=== PATIENT | male | born 1950 | race Caucasian/White ===

== ENCOUNTER → 2023-08-30 | Outpatient (CLI) | payer MEDICARE, OTHER ==
[2023-08-30 10:28] LABS: African American GFR (CKD) >90 (>60 ml/min/1.73 sqM); Blood Urea Nitrogen 16 mg/dL (9-20); Non-African American GFR(CKD) 90 (>60 ml/min/1.73 sqM)
--- NOTE | 2023-08-30 12:29 | CT ---
EXAMINATION TYPE: CT abdomen pelvis w con DATE OF EXAM: 08/30/2023 COMPARISON: None HISTORY: Lower abdominal pain, pt c/o testicular pain, mass. CT DLP: 1056.40 mGycm Automated exposure control for dose reduction was used. CONTRAST: CT scan of the abdomen pelvis is performed with IV Contrast, patient injected with 100 mL of Isovue 3 00. FINDINGS- LUNG BASES- subsegmental changes right lung base suggestive of scarring or atelectasis. No focal pne umonia. Trace of pericardial fluid. LIVER/GB- tiny sub-5 mm hypodensity dome of the liver too small to characterize but likely benign. PANCREAS- No gross abnormality is seen. SPLEEN- No gross abnormality is seen. ADRENALS- No gross abnormality is seen. KIDNEYS/BLADDER- no hydronephrosis nephrolithiasis or renal mass. BOWEL- there is a small hiatal hernia. No evidence of bowel obstruction. There are bilateral inguina l hernias with left-sided inguinal hernia containing both fat and portions of the left colon. No obst ruction. Small hydrocele on the right. Changes of diverticulosis. LYMPH NODES- No greater than 1cm abdominal or pelvic lymph nodes are appreciated. OSSEOUS STRUCTURES- No significant abnormality is seen. OTHER- there is ectasia of the abdominal aorta measuring 2.4 cm. Small fat-containing anterior abdom inal wall hernia. Partially included in the [id number] is soft tissue attenuation in left AP windo w which could represent a small amount pericardial fluid or adenopathy. IMPRESSION- 1. There is bilateral inguinal hernias with a segment of colon included on the left but no evidence o f obstruction. 2. Partially included in the [id number] is soft tissue attenuation in the left AP window possibly representing a small amount of fluid or lymph node. Consider follow-up CT chest.
== END | disposition home or self-care (01) ==
LOC: RADCTMAIN 09:44
PROVIDERS: ATTEND Family Medicine
DX: K40.20 Bilateral inguinal hernia, without obstruction or gangrene, not specified as recurrent (principal); R10.30 Lower abdominal pain, unspecified
CPT/HCPCS: 82565; 84520; 74177; 36415; Q9967

== ENCOUNTER → 2023-11-12 | Outpatient (CLI) | payer MEDICARE, OTHER ==
--- NOTE | 2023-11-12 08:56 | XR ---
EXAMINATION TYPE: XR chest 2V DATE OF EXAM: 11/12/2023 COMPARISON: None INDICATION: COPD TECHNIQUE: Frontal and lateral views of the chest are obtained. FINDINGS: The heart size is normal. The pulmonary vasculature is normal. There is a small density along the lateral right diaphragm. Follow-up exam in 3 months is recommended . No suspicious infiltrates are evident. IMPRESSION: 1. Punctate density at the right lateral diaphragm. Follow-up exam in 3 months is recommended for ree valuation. 2. No acute pulmonary process.
== END | disposition home or self-care (01) ==
LOC: LABWHC1 07:04
PROVIDERS: ATTEND Surgery Plastic and Reconstructive Surgery
DX: J44.9 Chronic obstructive pulmonary disease, unspecified (principal); K40.90 Unilateral inguinal hernia, without obstruction or gangrene, not specified as recurrent; I49.2 Junctional premature depolarization
CPT/HCPCS: 71046; 93005

== ENCOUNTER 2023-11-23 05:42 | Day surgery (SDC) | payer MEDICARE, OTHER ==
[2023-11-20 16:06] VITALS: BMI 26.6
[2023-11-23] MEDS ORDERED: LIDOCAINE 1% (10MG/ML) FOR IV START INTRADERMA PRN (06:18)
[2023-11-23 06:38] VITALS: TEMP 98.2
[2023-11-23] MEDS: LACTATED RINGERS 1,000 ML IV SCH (06:44)
[2023-11-23] MEDS: ONDANSETRON 4 MG/2 ML VIAL IVP PRN (06:45)
[2023-11-23] MEDS: ACETAMINOPHEN TAB 500 MG TAB PO PRN (06:52)
[2023-11-23] MEDS: MELOXICAM 7.5 MG TAB PO PRN (06:52)
--- NOTE | 2023-11-23 06:59 | P.GSHP ---
History of Present Illness H&P Date: 11/23/23 CHIEF COMPLAINT: Inguinal hernia, bilateral HISTORY OF PRESENT ILLNESS: The patient is a 72-year-old male who presents with a history of swelling and pain along the groins. He's noted increased swelling including pain of the area for over 3 months. He reports walking up 10 steps with groceries several times without chest pain or shortness of breath but he reports increased swelling of the groin with activity. 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 He presents for repair of his inguinal hernia. PAST MEDICAL HISTORY: Please see list. PAST SURGICAL HISTORY: Please see list. MEDICATIONS: Please see list. ALLERGIES: Please see list. SOCIAL HISTORY: No illicit drug use FAMILY HISTORY: No reports of Crohn disease or ulcerative colitis. REVIEW OF ORGAN SYSTEMS: CONSTITUTIONAL: Denies any fever or chills. Denies recent weight loss or weight gain. HEENT: Denies any trouble with vision, hearing or nosebleeds. No difficulty swallowing. LYMPHATIC: The patient denies any lumps and bumps around the neck. ENDOCRINE: Denies any thyroid disorders. Denies any blood sugar glucose intolerance. RESPIRATORY: Denies pneumonia. Denies any troubles with breathing or dyspnea on exertion. CARDIOVASCULAR: Denies any chest pain, palpitations, or recent heart attacks. GASTROINTESTINAL: Denies heart burn, constipation or bright red blood per rectum. GENITOURINARY: Denies any blood in urine or increased urinary frequency. MUSCULOSKELETAL: Denies any back pain, stiffness, joint arthritis. NEUROLOGIC: Denies any numbness or tingling along the distal extremities. No seizure disorders or headaches. PSYCHIATRIC: Denies depression or suidical ideation. HEMATOLOGIC: Denies any abnormal bleeding or bruising. BREASTS: Denies any breast lumps, pain or nipple discharge. SKIN: Denies any severe rash or previous skin cancer. PHYSICAL EXAM: VITAL SIGNS: Stable GENERAL: Well-developed pleasant male in no acute distress. HEENT: No scleral icterus. Extraocular movements grossly intact. Moist buccal mucosa. NECK: Supple without lymphadenopathy. CHEST: Unlabored respirations. Equal bilateral excursions. CARDIOVASCULAR: Regular rate and rhythm. Distal 2+ pulses. ABDOMEN: Soft, nondistended. No peritoneal signs. Palpable defect of the groin MUSCULOSKELETAL: No clubbing, cyanosis, or edema. STUDIES: CT of the abdomen pelvis independently reviewed demonstrates a large left inguinal hernia involving sigmoid colon. This is my independent interpre tation. EKG: Reviewed demonstrates borderline EKG. XRAY: Chest x-ray report demonstrates no abnormal findings. No chronic obstructive pulmonary disease or emphysema. ASSESSMENT: 1. Inguinal hernia, bilateral PLAN: 1. Recommend proceeding with a robotic inguinal repair with mesh with bilateral approach. 2. Benefits and risks of surgical intervention was discussed including possibility of open technique. 3. DVT prophylaxis. 4. Antibiotic prophylaxis. 5. Non narcotic pain management including abdominal wall block described 6. Blood sugar glucose described. 7. Weight loss management described. 8. He is elevated risk due to bowel containing hernia and risk for strangulation and bowel injury Past Medical History Past Medical History: COPD, Hyperlipidemia, Hypertension, Prostate Disorder, Skin Disorder, Thyroid Disorder Additional Past Medical History / Comment(s): NO MEDS NEEDED FOR COPD. HX HIGH HEMOGLOBIN - RESOLVED. ROSACEA. ENLARGED PROSTATE. History of Any Multi-Drug Resistant Organisms: None Reported Past Surgical History: Appendectomy Past Anesthesia/Blood Transfusion Reactions: No Reported Reaction Additional Past Anesthesia/Blood Transfusion Reaction / Comment(s): HAS NEVER GENERAL ANESTHESIA. Past Psychological History: ADD/ADHD, Depression Additional Psychological History / Comment(s): ADD. Smoking Status: Former smoker Past Alcohol Use History: Abuse Additional Past Alcohol Use History / Comment(s): SMOKED FOR 50 YRS, 1 PPD, QUIT IN 2015. Stopped drinking in 1997. Past Drug Use History: None Reported - Past Family History Father Family Medical History: Cancer, Congestive Heart Failure (CHF) Additional Family Medical History / Comment(s): Lung cancer. Heavy drinker, smoked. Medications and Allergies Home Medications Medication Instructions Recorded Confirmed Type Citalopram Hydrobromide 20 mg PO HS 01/06/16 11/20/23 History [Citalopram HBr] Dextroamphetamine/Amphetamine 10 mg PO TID 01/06/16 11/20/23 History [Adderall] Levothyroxine Sodium [Synthroid] 50 mcg PO QAM 01/06/16 11/20/23 History Simvastatin 20 mg PO HS 01/06/16 11/20/23 History Losartan Potassium 50 mg PO W/LUNCH 11/20/23 11/23/23 History Multivitamins, Thera [Multivitamin 1 tab PO DAILY 11/20/23 11/20/23 History (formulary)] Allergies Allergy/AdvReac Type Severity Reaction Status Date / Time No Known Allergies Allergy Verified 11/20/23 15:12 Surgical - Exam Vital Signs Temp Pulse Resp BP Pulse Ox 98.2 F 71 18 146/70 99 11/23/23 06:28 11/23/23 06:28 11/23/23 06:28 11/23/23 06:28 11/23/23 06:28
[2023-11-23] MEDS: TAMSULOSIN 0.4 MG CAP.ER.24H PO STA (07:09)
[2023-11-23] MEDS: MIDAZOLAM 2 MG/2 ML VIAL IVP ONE (07:14)
[2023-11-23] MEDS: HEPARIN SODIUM,PORCINE 5,000 UNIT/ML 1 ML VIAL SQ PRN (07:27)
[2023-11-23] MEDS ORDERED: ePHEDrine 50 MG/ML 1 ML VIAL ONE (07:43)
[2023-11-23] MEDS ORDERED: fentaNYL (PF) 50 MCG/ML 2 ML AMP ONE (07:43)
[2023-11-23] MEDS ORDERED: SODIUM CHLORIDE 0.9% (PF) 10 ML VIAL ONE (07:43)
[2023-11-23] MEDS ORDERED: NEOSTIGMINE 1 MG/ML 10 ML VIAL ONE (07:43)
[2023-11-23] MEDS ORDERED: PROPOFOL 10 MG/ML 20 ML VIAL IV ONE (07:43)
[2023-11-23] MEDS ORDERED: GLYCOPYRROLATE 0.2 MG/ML 2 ML VIAL ONE (07:43)
[2023-11-23] MEDS ORDERED: ROPIVACAINE 5 MG/ML 30 ML VIAL ONE (07:43)
[2023-11-23] MEDS ORDERED: ROCURONIUM 10 MG/ML (5 ML VIAL) IV ONE (07:43)
[2023-11-23] MEDS ORDERED: SUCCINYLCHOLINE CHLORIDE 200 MG/10 ML VIAL IV ONE (07:43)
[2023-11-23] MEDS: LIDOCAINE 1%-EPI 1:100,000 50 ML VIAL SQ ONE (07:48)
[2023-11-23 08:16] LABS: Basophils % (A) 0 %; Eosinophils # (A) 0.2 k/uL (0-0.7); Eosinophils % (A) 3 %; HCT 50.5 % (39.0-53.0); HGB 16.9 gm/dL (13.0-17.5); Lymphocytes # (A) 1.6 k/uL (1.0-4.8); Lymphocytes % (A) 26 %; MCHC 33.5 g/dL (31.0-37.0); MCV 92.8 fL (80.0-100.0); Mean Platelet Volume 9.3; Monocytes # (A) 0.3 k/uL (0-1.0); Monocytes % (A) 5 %; Neutrophils # (A) 3.7 k/uL (1.3-7.7); Neutrophils % (A) 63 %; Platelet Count 139 k/uL (150-450); RBC 5.45 m/uL (4.30-5.90); RDW 12.8 % (11.5-15.5); WBC 5.9 k/uL (3.8-10.6)
[2023-11-23 08:26] LABS: ALT 38 U/L (4-49); AST 42 U/L (17-59); African American GFR (CKD) >90 (>60 ml/min/1.73 sqM); Albumin 4.5 g/dL (3.5-5.0); Alkaline Phosphatase 66 U/L (38-126); Anion Gap 10 mmol/L; Blood Urea Nitrogen 17 mg/dL (9-20); Calcium 9.5 mg/dL (8.4-10.2); Carbon Dioxide 25 mmol/L (22-30); Chloride 105 mmol/L (98-107); Glucose 122 mg/dL (74-99); Non-African American GFR(CKD) >90 (>60 ml/min/1.73 sqM); Sodium 140 mmol/L (137-145); Total Bilirubin 0.6 mg/dL (0.2-1.3); Total Protein 7.2 g/dL (6.3-8.2)
[2023-11-23 08:29] LABS: Potassium 4.6 mmol/L (3.5-5.1)
[2023-11-23] MEDS: LACTATED RINGERS 1,000 ML IV ONE (08:47)
--- NOTE | 2023-11-23 09:51 | P.ANPRN ---
Procedure Note - Anesthesia - Nerve Block Performed Bilateral Erector Spinae Single Time Out Performed: Yes (0714) Date of Procedure: 11/23/23 Procedure Start Time: 07:15 Procedure Stop Time: 07:20 Location of Patient: PreOp Indication: Acute Post-Operative Pain, Requested by Surgeon Sedation Type: Sedate with meaningful contact maintained Preparation: Sterile Prep, Sterile Dressing Position: Prone Catheter: None Needle Types: Pajunk Needle Gauge: 21 Ultrasound used to visualize needle placement: Yes Ultrasound used to observe medication spread: Yes Injectate: 0.5% Ropivacaine (see comment for volume) (20 mL of block solution used on each side which contains, 10 ML of 0.5% ropivacaine mixed with 10 ML of preservative-free normal saline) Blood Aspirated: No Pain Paresthesia on Injection Noted: No Resistance on Injection: Normal Image Stored and Saved: Yes Events: Uneventful and Well Tolerated
[2023-11-23] MEDS: HYDROmorphone 0.5 MG/0.5 ML SYRINGE IVP PRN (10:53)
--- NOTE | 2023-11-23 11:18 | P.OP ---
Date of Procedure: 11/23/23 Description of Procedure: SURGEON: ROSAURA SAMUELS MD PREOPERATIVE DIAGNOSES: 1. Bilateral inguinal hernias, initial 2. Hypertensive heart disease 3. Hypothyroidism 4. Depressive disorder 5. Hyperlipidemia 6. Enlarged prostate with obstructive uropathy 7. ADD with ADHD 8. Remote tobacco abuse disorder POSTOPERATIVE DIAGNOSES: 1. Initial left inguinal hernia, incarcerated with sigmoid colon, partial bowel obstruction 2. Initial right inguinal hernia, incarcerated 3. Hypothyroidism 4. Depressive disorder 5. Hyperlipidemia 6. Enlarged prostate with obstructive uropathy 7. ADD with ADHD 8. Remote tobacco abuse disorder 9. Hypertensive heart disease 10. Right inguinal lipoma, subfascial 3 cm OPERATION: 1. Robotic-assisted da Grzegorz Xi laparoscopic reduction repair of initial incarcerated left indirect inguinal hernia with mesh, 10 x [address] 2. Robotic-assisted da Grzegorz Xi laparoscopic reduction repair of initial incarcerated right indirect inguinal hernia with mesh, 10 x [address] 3. Excision of right inguinal subfascial lipoma, 3 cm ANESTHESIA: General, block with local anesthetic ESTIMATED BLOOD LOSS: 5 mL. SPECIMENS: 1. Incarcerated left inguinal hernia sac 2. Incarcerated right inguinal hernia sac COMPLICATIONS: None. FINDINGS: 1. Incarcerated left inguinal hernia over 3.5 cm, Nyhus IV, incorporating sigmoid colon with partial obstruction 2. Incarcerated right inguinal hernia 2 cm 3. Sigmoid colon incarceration reduced without ischemia or infarction from left inguinal hernia 4. Sigmoid diverticulosis moderate to severe INDICATIONS: The patient is a 72-year-old male who presents with initial bilateral inguinal hernias. He reports changes in bowel habits as a result. Now he presents for definitive surgical intervention. Laparoscopic versus open and robotic approaches were discussed including bilateral approach. Benefits and risks including bleeding, infection, chronic groin pain, sterility were reviewed. Placement of mesh was also described. Informed consent was obtained. DESCRIPTION: In the preoperative area, an abdominal block was placed per anesthesia. The patient was brought to the operating room and initially laid in supine position. The abdomen had been prepped and draped in standard sterile fashion. Ioban draping was also placed. Prior to incision, a timeout protocol was confirmed with surgical team regarding patient's name including procedures to be performed. Initial positioning for the robotic assisted ports were selected 20 cm superior to the target anatomy. A 0 degree 5 mm laparoscopic trocar entry was performed at the left upper quadrant. The abdomen was insufflated to 15 mmHg which he tolerated well. Diagnostic laparoscopy demonstrated no injury to bowel, viscera or mesentery. Incarcerated sigmoid colon was found along the left groin, indirect. Along the right groin, direct, incarcerated inguinal hernia with inguinal lipoma. Next, along the epigastrium, 8 mm robot trocar was placed. An 8-mm robotic trocar was placed under direct visualization at the right upper quadrant. An 8 mm port was placed at the left upper quadrant. All trocars were positioned between 10-cm apart from each other. A 12 mm trocar was placed at the right lateral abdominal wall as an accessory port. The [employer] robot was primed, draped, prepared for docking along upper abdomen of the patient. The patient was positioned 21 steep Trendelenburg position. I then went to the [employer] Xi console. The billing assistant was at bedside for exchange of the robot arms and equipment. Attention was brought to the left groin. A very large left inguinal defect was confirmed as the sigmoid colon was reduced from the left groin after direct pressure over the inguinal area initially performed by me prior to docking the robot. Next, the left groin defect was measured 3.5-cm hernia with the sac extending to the scrotum. A large indirect hernia was confirmed, Nyhus type IV. The left inguinal hernia sac was evaginated whereby the peritoneum was scored using Endo scissors with cautery. As the hernia sac extended into the groin, complete resection of the sac was done. The peritoneal sac of the hernia was stripped. The sac was resected and then passed off for further pathological analysis. The size of the hernia defect was 3.5 centimeters cm with intraoperative films obtained. Using a nonabsorbable blue 2-0 VLOC, the peritoneal defect of the left inguinal hernia site was closed using a running suture. The defect was found to be completely closed with complete reduction of the left direct inguinal hernia was confirmed. As an onlay, 10 x [address] mesh by [employer] was entered into the abdominal cavity via the 8 mm trocar. The mesh was tacked to the pelvis using 2-0 VLOC 12-inch green absorbable length sutures. Attention was brought to the right groin. A right inguinal direct defect was confirmed with incarcerated subfascial inguinal lipoma, 3 cm. Next, the right groin defect was measured 2-cm hernia. The right inguinal hernia sac was evaginated whereby the peritoneum was scored using Endo scissors with cautery. The peritoneal sac of the hernia was stripped. The sac was resected and then passed off for further pathological anal ysis. The size of the hernia defect was 2 cm with intraoperative films obtained. Subfascial inguinal lipoma 3 cm was resected. Using a 2-0 VLOC, the peritoneal defect of the right inguinal hernia site was closed using a running suture. The defect was found to be completely closed with complete reduction of the right direct inguinal hernia was confirmed. As an onlay, an 10 x [address] mesh by [employer] was cut in half and entered into the abdominal cavity via the 8 mm trocar. The mesh was tacked to the pelvis using absorbable green 2-0 VLOC 12-inch length sutures. A final endoscopic imaging was obtained. The robot was undocked from the patient's bedside. I then rescrubbed into the case. Insufflation was released from the abdominal cavity and all instruments were removed from the abdominal cavity. Pressure was applied along the left groin. The rest of incisions were reapproximated using 4-0 Monocryl in a running subcuticular fashion. Local anesthetic was placed along the incision including for a bilateral groin block. Incisions were cleansed using dilute hydrogen peroxide. Liquid glue was applied to the skin. At the end of the procedure, the needle, sponge and instrument counts had been verified correct by the surgical corsetier. The patient had tolerated the procedure well and was taken to the postanesthesia care unit in stable condition. Intraoperative images were reviewed with the patient's family who were pleased with the level of care. Plan - Discharge Summary Discharge Rx Participant: No New Discharge Prescriptions: New Acetaminophen Tab [Tylenol Tab] 1,000 mg PO Q6HR PRN #30 tablet PRN Reason: Pain RX: Simethicone [Gas-X] 125 mg PO AC-TID PRN #20 capsule PRN Reason: Pain Continue RX: Levothyroxine Sodium [Synthroid] 50 mcg PO QAM RX: Simvastatin 20 mg PO HS RX: Dextroamphetamine/Amphetamine [Adderall] 10 mg PO TID RX: Citalopram Hydrobromide [Citalopram HBr] 20 mg PO HS RX: Losartan Potassium 50 mg PO W/LUNCH RX: Multivitamins, Thera [Multivitamin (formulary)] 1 tab PO DAILY Discharge Medication List RX: Citalopram Hydrobromide [Citalopram HBr] 20 mg PO HS 01/06/16 [History] RX: Dextroamphetamine/Amphetamine [Adderall] 10 mg PO TID 01/06/16 [History] RX: Levothyroxine Sodium [Synthroid] 50 mcg PO QAM 01/06/16 [History] RX: Simvastatin 20 mg PO HS 01/06/16 [History] RX: Losartan Potassium 50 mg PO W/LUNCH 11/20/23 [History] RX: Multivitamins, Thera [Multivitamin (formulary)] 1 tab PO DAILY 11/20/23 [History] Acetaminophen Tab [Tylenol Tab] 1,000 mg PO Q6HR PRN #30 tablet 11/23/23 [Rx] RX: Simethicone [Gas-X] 125 mg PO AC-TID PRN #20 capsule 11/23/23 [Rx] Follow up Appointment(s)/Referral(s): Rosaura Samuels MD [STAFF PHYSICIAN] - 11/27/23 ( TELE[facility]ALTH - DR WILL CALL YOU BETWEEN 8 am to 8 pm) Patient Instructions/Handouts: Inguinal Hernia Repair (GEN), Laparoscopic Herniorrhaphy (IP) Activity/Diet/Wound Care/Special Instructions: TELEHEALTH - WILL CALL YOU BETWEEN 8 am to 8 pm No lifting for 4 pounds in 4 weeks, December 23 Use antibacterial soap. January shower. No bathtub soaks for 2 weeks, December 06 Use ice along incisions for today to prevent swelling. Use Tylenol, simethicone and ibuprofen or Aleve scheduled for the next 24-48 hours for best pain relief. Discharge Disposition: HOME SELF-CARE
[2023-11-23] MEDS ORDERED: ACETAMINOPHEN TAB 500 MG TAB ONE (15:16)
[2023-11-23] MEDS ORDERED: KETOROLAC 15 MG/ML 1 ML VIAL ONE (15:33)
[2023-11-23] MEDS: KETOROLAC 15 MG/ML 1 ML VIAL IVP ONE (15:35)
[2023-11-23] MEDS: TAMSULOSIN 0.4 MG CAP.ER.24H PO ONE (15:39)
[2023-11-23 16:44] VITALS: BP 132/68; PULSE 62; RESP 16
== END 2023-11-23 16:54 | disposition home or self-care (01) ==
LOC: OR 05:42
PROVIDERS: ATTEND Surgery Plastic and Reconstructive Surgery
DX: K40.20 Bilateral inguinal hernia, without obstruction or gangrene, not specified as recurrent (principal); K56.600 Partial intestinal obstruction, unspecified as to cause; J44.9 Chronic obstructive pulmonary disease, unspecified; I11.9 Hypertensive heart disease without heart failure; F90.9 Attention-deficit hyperactivity disorder, unspecified type; F32.A Depression, unspecified; E78.5 Hyperlipidemia, unspecified; E03.9 Hypothyroidism, unspecified; N40.1 Benign prostatic hyperplasia with lower urinary tract symptoms; N13.8 Other obstructive and reflux uropathy; F10.90 Alcohol use, unspecified, uncomplicated; Z79.890 Hormone replacement therapy; Z87.891 Personal history of nicotine dependence; Z90.49 Acquired absence of other specified parts of digestive tract; Z79.899 Other long term (current) drug therapy
CPT/HCPCS: 49650; S2900; 64999; 80053; 85025; 88302; 88304

== ENCOUNTER 2023-11-23 20:30 | Emergency (ER) | payer MEDICARE, OTHER ==
[2023-11-23 20:40] VITALS: TEMP 97.4
--- NOTE | 2023-11-23 20:53 | ED ---
General Adult HPI - General Chief complaint: Urogenital Stated complaint: unable to urinate Time Seen by Provider: 11/23/23 20:38 Source: patient Mode of arrival: ambulatory Limitations: no limitations - History of Present Illness Initial comments: 72-year-old male presenting to the ED with complaints of urinary retention. Patient notes problems with difficulties urinating in the past however is not prescribed medications for this. Patient is status post robotic assisted da Grzegorz laparoscopic repair of incarcerated left indirect inguinal hernia with mesh, laparoscopic repair incarcerated right indirect inguinal hernia with mesh, and excision right inguinal subfascial lipoma this morning performed by Dr. Samuels. Reportedly, patient was offered catheter placement after surgery this morning however patient states he was hesitant to do so and declined at this time. Reports he was instructed to return to the hospital if he has been unable to urinate. Patient states that he has been unable to urinate since 9:30 AM. Denies abdominal pain. No fever or chills. No chest pain or shortness of breath. No other complaints at this time. - Related Data Home Medications Medication Instructions Recorded Confirmed Citalopram Hydrobromide 20 mg PO HS 01/06/16 11/20/23 [Citalopram HBr] Dextroamphetamine/Amphetamine 10 mg PO TID 01/06/16 11/20/23 [Adderall] Levothyroxine Sodium [Synthroid] 50 mcg PO QAM 01/06/16 11/20/23 Simvastatin 20 mg PO HS 01/06/16 11/20/23 Losartan Potassium 50 mg PO W/LUNCH 11/20/23 11/23/23 Multivitamins, Thera [Multivitamin 1 tab PO DAILY 11/20/23 11/20/23 (formulary)] Previous Rx's Medication Instructions Recorded Acetaminophen Tab [Tylenol Tab] 1,000 mg PO Q6HR PRN #30 tablet 11/23/23 Simethicone [Gas-X] 125 mg PO AC-TID PRN #20 capsule 11/23/23 Tamsulosin HCl [Flomax] 0.4 mg PO DAILY #10 capsule 11/23/23 Tamsulosin [Flomax] 0.4 mg PO DAILY #7 cap 11/23/23 Allergies Allergy/AdvReac Type Severity Reaction Status Date / Time No Known Allergies Allergy Verified 11/23/23 20:36 Review of Systems ROS Statement: Those systems with pertinent positive or pertinent negative responses have been documented in the HPI. ROS Other: All systems not noted in ROS Statement are negative. Past Medical History Past Medical History: COPD, Hyperlipidemia, Hypertension, Prostate Disorder, Skin Disorder, Thyroid Disorder Additional Past Medical History / Comment(s): NO MEDS NEEDED FOR COPD. HX HIGH HEMOGLOBIN - RESOLVED. ROSACEA. ENLARGED PROSTATE. History of Any Multi-Drug Resistant Organisms: None Reported Past Surgical History: Appendectomy Additional Past Surgical History / Comment(s): hernia surgery Past Anesthesia/Blood Transfusion Reactions: No Reported Reaction Additional Past Anesthesia/Blood Transfusion Reaction / Comment(s): HAS NEVER GENERAL ANESTHESIA. Past Psychological History: ADD/ADHD, Depression Smoking Status: Former smoker Past Alcohol Use History: None Reported, Abuse Past Drug Use History: None Reported - Past Family History Father Family Medical History: Cancer, Congestive Heart Failure (CHF) Additional Family Medical History / Comment(s): Lung cancer. Heavy drinker, smoked. General Exam Limitations: no limitations General appearance: alert, in no apparent distress Eye exam: Present: normal appearance Neck exam: Present: normal inspection Respiratory exam: Present: normal lung sounds bilaterally Cardiovascular Exam: Present: regular rate, normal rhythm GI/Abdominal exam: Present: soft, normal bowel sounds, other (No CVA tenderness to percussion bilaterally.). Absent: distended, tenderness, guarding, rebound, rigid Neurological exam: Present: alert, oriented X3 Skin exam: Present: warm, dry Course Vital Signs 11/23/23 20:32 Temperature 97.4 F L Pulse Rate 109 H Respiratory 20 Rate Blood Pressure 168/83 O2 Sat by Pulse 98 Oximetry Medical Decision Making - Medical Decision Making Was pt. sent in by a medical professional or institution (, PA, LIVING ADVISOR, urgent care, hospital, or penitentiary...) When possible be specific @ -No Did you speak to anyone other than the patient for history (EMS, parent, family, police, friend...)? What history was obtained from this source @ -No Did you review nursing and triage notes (agree or disagree)? Why? @ -I reviewed and agree with nursing and triage notes Were old charts reviewed (outside hosp., previous admission, EMS record, old EKG, old radiological studies, urgent care reports/EKG's, penitentiary records)? Report findings @ -No old charts were reviewed Differential Diagnosis (chest pain, altered mental status, abdominal pain women, abdominal pain men, vaginal bleeding, weakness, fever, dyspnea, syncope, headache, dizziness, GI bleed, back pain, seizure, CVA, palpatations, mental health, musculoskeletal)? @ -Differential Abdominal Pain Men: Appendicitis, cholecystitis, diverticulosis, ischemic bowel, pancreatitis, hepatitis, UTI, gastroenteritis, AAA, incarcerated hernia, bowel obstruction, constipation, inflammatory bowel, hepatitis, peptic ulcer disease, splenic infarction, perforated viscus, testicular torsion, this is not meant to be an all-inclusive list EKG interpreted by me (3pts min.). @ -None X-rays interpreted by me (1pt min.). @ -None done CT interpreted by me (1pt min.). @ -None done U/S interpreted by me (1pt. min.). @ -Bedside bladder ultrasound interpreted by me showing 390 of the 400 cc. What testing was considered but not performed or refused? (CT, X-rays, U/S, labs)? Why? @ -None What meds were considered but not given or refused? Why? @ -None Did you discuss the management of the patient with other professionals (professionals i.e. , PA, LIVING ADVISOR, lab, RT, psych nurse, social work case manager, geotechnicial properties technician, teacher, returning officer, high risk case manager)? Give summary @ -No Was smoking cessation discussed for >3mins.? @ -No Was critical care preformed (if so, how long)? @ -No Were there social determinants of health that impacted care today? How? (Homelessness, low income, unemployed, alcoholism, drug addiction, transportation, low edu. Level, literacy, decrease access to med. care, nursing home, rehab)? @ -No Was there de-escalation of care discussed even if they declined (Discuss DNR or withdrawal of care, Hospice)? DNR status @ -No What co-morbidities impacted this encounter? (DM, HTN, Smoking, COPD, CAD, Cancer, CVA, ARF, Chemo, Hep., AIDS, mental health diagnosis, sleep apnea, morbid obesity)? @ -Recent repair of bilateral indirect inguinal hernias this morning Was patient admitted / discharged? Hospital course, mention meds given and route , prescriptions, significant lab abnormalities, going to OR and other pertinent info. @ -Discharge 72-year-old male presenting to the ED with a chief complaint of urinary retention. This morning had bilateral laparoscopic inguinal hernia repair performed by Dr. Samuels. Has not urinated since 4:30 AM this morning. He was reportedly offered a catheter after his procedure prior to discharge but was hesitant to do so. Presented to the ED today as he still been unable to urinate. Bedside bladder ultrasound showed 390 to 400 cc. Carroll catheter placed. UA reviewed showing no significant findings. Discharged home with prescription for Tamsulosin and referral to see urology. At discharge vital signs stable afebrile. Discussed return precautions with patient who verbalized agreement. Undiagnosed new problem with uncertain prognosis? @ -No Drug Therapy requiring intensive monitoring for toxicity (Heparin, Nitro, Insulin, Cardizem)? @ -No Were any procedures done? @ -No Diagnosis/symptom? @ -Urinary retention status post inguinal hernia repair Acute, or Chronic, or Acute on Chronic? @ -Acute Uncomplicated (without systemic symptoms) or Complicated (systemic symptoms)? @ -Complicated Side effects of treatment? @ -No Exacerbation, Progression, or Severe Exacerbation? @ -No Poses a threat to life or bodily function? How? (Chest pain, [place], [place], pneumonia, PE, COPD, DKA, ARF, appy, cholecystitis, CVA, Diverticulitis, Homicidal, Suicidal, threat to staff... and all critical care pts) @ -Unlikely - Lab Data Lab Results 11/23/23 Range/Units 21:20 Urine Color Yellow Urine Appearance Clear (Clear) Urine pH 5.5 (5.0-8.0) Ur Specific [place] 1.030 (1.001-1.035) Urine Protein Trace H (Negative) Urine Glucose (UA) Negative (Negative) Urine Ketones Negative (Negative) Urine Blood Negative (Negative) Urine Nitrite Negative (Negative) Urine Bilirubin Negative (Negative) Urine Urobilinogen <2.0 (<2.0) mg/dL Ur Leukocyte Esterase Negative (Negative) Disposition Clinical Impression: Urinary retention Disposition: HOME SELF-CARE Condition: Good Instructions (If sedation given, give patient instructions): Urinary Retention in Men (ED), Enlarged Prostate (BPH) (ED), Carroll Catheter Placement and Care (ED) Additional Instructions: Please return to the Emergency Department if symptoms worsen or any other concerns. Please follow-up with urology within 1 week. Prescriptions: Tamsulosin HCl [Flomax] 0.4 mg PO DAILY #10 capsule Is patient prescribed a controlled substance at d/c from ED?: No Referrals: Quentin Saravia MD [Primary Care Provider] - 1-2 days Francisco Villaseñor MD [STAFF PHYSICIAN] - 1-2 days
[2023-11-23 21:31] LABS: Appearance,Urine Clear (Clear); Bilirubin,Urine Negative (Negative); Blood,Urine Negative (Negative); Color,Urine Yellow; Glucose,Urine (UA) Negative (Negative); Ketones,Urine Negative (Negative); Leukocyte Esterase,Urine Negative (Negative); Nitrite,Urine Negative (Negative); PH, Urine 5.5 (5.0-8.0); Protein,Urine Trace (Negative); Urobilinogen,Urine <2.0 mg/dL (<2.0)
[2023-11-23] MEDS: TAMSULOSIN 0.4 MG CAP.ER.24H PO STA (22:13)
[2023-11-23 22:15] VITALS: BP 126/86; PULSE 81; RESP 16
== END 2023-11-23 22:19 | disposition home or self-care (01) ==
LOC: EC 20:30
DX: R33.9 Retention of urine, unspecified (principal); J44.9 Chronic obstructive pulmonary disease, unspecified; I10 Essential (primary) hypertension; E78.5 Hyperlipidemia, unspecified; F32.A Depression, unspecified; F90.9 Attention-deficit hyperactivity disorder, unspecified type; E07.9 Disorder of thyroid, unspecified; Z79.890 Hormone replacement therapy; Z79.899 Other long term (current) drug therapy; Z87.891 Personal history of nicotine dependence
CPT/HCPCS: 51702; 51798; 81003; 99284

== ENCOUNTER → 2024-08-21 | Outpatient (CLI) | payer MEDICARE, OTHER ==
--- NOTE | 2024-08-21 15:12 | CTL ---
EXAMINATION TYPE: CT Low Dose Lung DATE OF EXAM ORDERED: 08/21/2024 COMPARISON: Chest radiograph 11/12/2023 CLINICAL INDICATION: Male, 73 years old with history of Z12.2, Z87.891; [facility], lung [place] screening, quit smoking in 2017, Lung cancer screening, History of Smoking/tobacco use. TECHNIQUE: Low dose computed tomography scan was performed through the chest at 1 mm thick sections a nd reconstructed images in multiple planes at 1 mm and [address] DLP: 125.[address] CTDI: 3.2 mGy Automated exposure control for dose reduction was used. CT DIAGNOSTIC QUALITY: Satisfactory FINDINGS: Nodules: No clinically significant pulmonary nodules. LUNGS: COPD: Severity: Mild Fibrosis: Severity: None Lymph nodes: None Other findings: Right lower lung linear scarring and/or atelectasis. Elevation of the right hemidiaph ragm. RIGHT PLEURAL SPACE: Effusion: None Calcification: None Thickening: None Pneumothorax: None LEFT PLEURAL SPACE: Effusion: None Calcification: None Thickening: None Pneumothorax: None HEART: Heart Size: Normal Coronary Calcification: Small Pericardial Effusion: None OTHER FINDINGS: Upper abdomen: Tiny hiatal hernia. Bony thorax: Dextroscoliotic curvature of the thoracic spine. Supraclavicular region: None Other: None IMPRESSION: 1. No clinically significant pulmonary nodules. 2. Mild COPD changes. CT LUNG RAD AND CT CHEST RECOMMENDATION: Lung-Rad 1 Negative: Continue annual screening with LDCT in 12 months. S Modifier (other clinically significant findings): None [facility], , 08/21/2024 3:10 PM
== END | disposition home or self-care (01) ==
LOC: RADCTMAIN 07:50
PROVIDERS: ATTEND Family Medicine
DX: Z12.2 Encounter for screening for malignant neoplasm of respiratory organs (principal); J44.9 Chronic obstructive pulmonary disease, unspecified; Z87.891 Personal history of nicotine dependence
CPT/HCPCS: 71271